=== PATIENT | female | born 1965 | race Two or more races ===

== ENCOUNTER 2020-07-25 15:39 | Emergency (ER) | payer OTHER ==
[2020-07-25 15:50] VITALS: BP 120/97; PULSE 73; TEMP 97.9; BMI 34.4
[2020-07-25] MEDS ORDERED: DEXAMETHASONE SOD PHOSPHATE 4 MG/1 ML VIAL IM ONE (16:26)
[2020-07-25] MEDS ORDERED: diazePAM 5 MG TABLET PO ONE (16:27)
[2020-07-25] MEDS ORDERED: diazePAM 5 MG TABLET ONE (16:35)
[2020-07-25] MEDS ORDERED: DEXAMETHASONE SOD PHOSPHATE 4 MG/1 ML VIAL ONE (16:35)
[2020-07-25] MEDS ORDERED: LIDOCAINE 5% TOPICAL PATCH TP ONE (16:39)
[2020-07-25] MEDS ORDERED: LIDOCAINE 5% TOPICAL PATCH ONE (16:43)
[2020-07-25] MEDS ORDERED: LIDOCAINE PATCH REMOVAL MC SCH (22:00)
== END 2020-07-25 18:33 | disposition home or self-care (01) ==
LOC: FER 15:39
PROC: 3E0233Z Introduction of Anti-inflammatory into Muscle, Percutaneous Approach (ICD-10-PCS; principal; 2020-07-25)
DX: M54.42 Lumbago with sciatica, left side (principal); G89.29 Other chronic pain
CPT/HCPCS: 72131-TC; 99284-25

== ENCOUNTER 2021-02-05 16:36 | Emergency (ER) | payer OTHER ==
[2021-02-05 17:16] VITALS: BP 107/67; PULSE 88; TEMP 98.5; BMI 34.3
[2021-02-07 10:11] LABS: SARS-CoV-2 NAA Not Detected (Not Detected)
== END 2021-02-05 18:53 | disposition home or self-care (01) ==
LOC: FER 16:36
DX: M79.605 Pain in left leg (principal); R05 Cough; R68.83 Chills (without fever)
CPT/HCPCS: 71045-TC-FY; 93971-TC; 99284-25; C9803; U0003; U0005

== ENCOUNTER 2021-07-24 17:52 | Observation (INO) | payer OTHER ==
[2021-07-24 19:12] LABS: ANION GAP 10 MMOL/L (8-16); BILIRUBIN,TOTAL 0.5 mg/dl (0.2-1); CALCIUM 9.3 mg/dl (8.5-10); CHLORIDE 105 mmol/L (98-107); CO2 23 mmol/L (21-32); CREATININE 0.7 mg/dl (0.55-1.3); GLUCOSE,RANDOM 92 mg/dl (74-106); SGOT/AST 22 U/L (15-37); SGPT/ALT 19 U/L (13-61); SODIUM 138 mmol/L (136-145)
[2021-07-24 19:14] LABS: ALK PHOS 100 U/L (45-117); INR 0.94 (0.82-1.09); PROTHROMBIN TIME (PATIENT) 10.4 SEC (10.2-13.0); TOT PROT 7.4 g/dl (6.4-8.2)
[2021-07-24 19:21] LABS: BASO % 3.5 % (0-2.0); HEMATOCRIT 39.5 % (32.4-45.2); HEMOGLOBIN 12.6 GM/dl (10.7-15.3); MCH 28.9 pg (25.7-33.7); MEAN CELL VOLUME 90.3 fl (80-96); MEAN PLT VOLUME 8.8 fl (7.5-11.1); MONO % 6.1 % (3.8-10.2); NEUT % 51.4 % (42.8-82.8); PLATELET COUNT 295 10^3/uL (134-434); RBC 4.38 M/mm3 (3.60-5.2); RDW 12.5 % (11.6-15.6); WHITE BLOOD COUNT 6.2 K/mm3 (4.0-10.8)
[2021-07-24] MEDS ORDERED: ASPIRIN 81 MG CHEWABLE TABLETS PO ONE (21:49)
[2021-07-24] MEDS ORDERED: ASPIRIN 81 MG CHEWABLE TABLETS ONE (21:53)
[2021-07-24] MEDS ORDERED: POLYETHYLENE GLYCOL (HEALTHYLAX) 3350 17 GM PACKET PO PRN (23:10)
[2021-07-24 23:42] VITALS: BMI 35.2
[2021-07-25 08:19] LABS: CALCIUM 9.2 mg/dl (8.5-10); CREATININE 0.7 mg/dl (0.55-1.3)
[2021-07-25 08:41] LABS: HEMATOCRIT 36.6 % (32.4-45.2); HEMOGLOBIN 12.3 GM/dl (10.7-15.3); MCHC 33.5 g/dl (32.0-36.0); MEAN CELL VOLUME 89.7 fl (80-96); MEAN PLT VOLUME 8.8 fl (7.5-11.1); PLATELET COUNT 249 10^3/uL (134-434); RBC 4.08 M/mm3 (3.60-5.2); RDW 12.8 % (11.6-15.6); WHITE BLOOD COUNT 4.6 K/mm3 (4.0-10.8)
[2021-07-25] MEDS: CHOLECALCIFEROL (VIT D3) 1,000 UNIT (25 MCG) TABLET PO SCH (09:41)
[2021-07-25] MEDS: VENLAFAXINE HCL 75 MG TABLET PO SCH (09:41)
[2021-07-25] MEDS: ASPIRIN COATED 81 MG TABLET.EC PO SCH (09:41)
[2021-07-25] MEDS: TOPIRAMATE 25 MG TABLET PO SCH ×2 (09:42→21:47)
[2021-07-25] MEDS: PRAMIPEXOLE DIHYDROCHLORIDE 0.25 MG TABLET PO SCH (09:43)
[2021-07-25] MEDS ORDERED: [UNRECOGNIZED DRUG - OTHER] SL SCH (10:00)
[2021-07-25] MEDS ORDERED: CYANOCOBALAMIN 2500 MCG SL SCH (10:00)
[2021-07-25] MEDS: CYANOCOBALAMIN 1,000 MCG TABLET (FP) PO SCH (11:24)
[2021-07-25] MEDS ORDERED: ROSUVASTATIN CA 5 MG TABLET (FP) PO SCH (22:00)
[2021-07-26] MEDS ORDERED: REGADENOSON 0.4 MG/5 ML PRE-FILLED SYRINGE IVPUSH ONE ×2 (10:07→10:30)
[2021-07-26] MEDS: ASPIRIN COATED 81 MG TABLET.EC PO SCH (16:09)
[2021-07-26] MEDS: VENLAFAXINE HCL 75 MG TABLET PO SCH (16:09)
[2021-07-26] MEDS: CYANOCOBALAMIN 1,000 MCG TABLET (FP) PO SCH (16:09)
[2021-07-26] MEDS: PRAMIPEXOLE DIHYDROCHLORIDE 0.25 MG TABLET PO SCH (16:09)
[2021-07-26] MEDS: TOPIRAMATE 25 MG TABLET PO SCH (16:09)
[2021-07-26] MEDS: CHOLECALCIFEROL (VIT D3) 1,000 UNIT (25 MCG) TABLET PO SCH (16:09)
[2021-07-26 19:09] VITALS: BP 109/69; PULSE 90; TEMP 98.4
[2021-07-26] MEDS ORDERED: ROSUVASTATIN CA 10 MG TABLET (FP) PO SCH (22:00)
== END 2021-07-26 19:00 | disposition home or self-care (01) ==
LOC: SUPCPDRO 17:52 → FER 17:52 → UNDOADMOB 22:52 → FM/S 22:52 → INTOOBSV 22:52 → FM/S 23:10
PROVIDERS: ATTEND Family Medicine
PROC: 3E033GC Introduction of Other Therapeutic Substance into Peripheral Vein, Percutaneous Approach (ICD-10-PCS; principal; 2021-07-24)
DX: R06.02 Shortness of breath (principal); R07.2 Precordial pain; E78.5 Hyperlipidemia, unspecified; F41.8 Other specified anxiety disorders; R53.83 Other fatigue; Z86.59 Personal history of other mental and behavioral disorders; E66.8 Other obesity; R07.9 Chest pain, unspecified; F41.9 Anxiety disorder, unspecified; Z86.39 Personal history of other endocrine, nutritional and metabolic disease; Z68.35 Body mass index [BMI] 35.0-35.9, adult
CPT/HCPCS: 36415; 71045-TC-FY; 78452-TC; 80048; 80053; 80061; 82550; 83880; 84443; 84484; 85025; 85027; 85610; 93005; 93017; 93306-TC; 99285-25; A9502; C9803; G0378; J2785; U0003; U0005

== ENCOUNTER 2022-09-08 15:30 | Emergency (ER) | payer OTHER ==
[2022-09-08 16:14] VITALS: BP 112/73; PULSE 85; RESP 18; TEMP 98.4; BMI 35.1
[2022-09-08 16:42] LABS: HEMATOCRIT 38.5 % (32.4-45.2); HEMOGLOBIN 12.8 G/dL (10.7-15.3); MCH 29.5 pg (25.7-33.7); MCHC 33.3 g/dl (32.0-36.0); MEAN CELL VOLUME 88.4 fl (80-96); MEAN PLT VOLUME 8.1 fl (7.5-11.1); PLATELET COUNT 269.3 10^3/uL (134-434); RBC 4.35 10^6/uL (3.60-5.2); RDW 14.2 % (11.6-15.6); WHITE BLOOD COUNT 5.5 10^3/uL (4.0-10.8)
[2022-09-08 16:45] LABS: ALBUMIN 3.4 g/dl (3.4-5.0); BILIRUBIN,TOTAL 0.6 mg/dl (0.2-1); CALCIUM 8.8 mg/dl (8.5-10); CREATININE 0.5 mg/dl (0.55-1.3); TOT PROT 6.8 g/dl (6.4-8.2)
[2022-09-08 16:52] LABS: PLATELET ESTIMATE ADEQUATE
== END 2022-09-08 19:35 | disposition home or self-care (01) ==
LOC: FER 15:30
DX: J40 Bronchitis, not specified as acute or chronic (principal)
CPT/HCPCS: 0241U-QW; 36415; 80053; 85027; 99283-25